=== PATIENT | male | born 1995 | race Two or more races ===

== ENCOUNTER 2018-09-16 01:55 | Inpatient (IN) | payer SELFPAY ==
--- NOTE | 2018-09-16 03:33 | ED ---
Psychiatric Complaint - HPI Summary HPI Summary: Pt is a 23 y/o male brought in by police and EMS on a 9.41 who presents to the ED c/o paranoia. He states that he had a public safety wellness check and said some things thats were misconstrued. Pt states that somebody has hacked his computer and phone and is able to see his screens and passwords. This hacker has access to his schedule and was posting threatening things on social media. As per police, they were called by the mayuri of [facility] out of concern for paranoia. Pt denies any SI/HI. He has no prior psychiatric history. - History Of Current Complaint Chief Complaint: EDMentalHealth Time Seen by Provider: 09/16/18 02:45 Hx Obtained From: Patient, EMS Onset/Duration: Gradual Onset, Still Present Timing: Constant Aggravating Factor(s): Nothing Alleviating Factor(s): Nothing Associated Signs And Symptoms: Positive: Paranoid Behavior Related History: Negative For: Prior Psychiatric Issues Has Suicidal: Denies: Thoughts Has Homicidal: Denies: Thoughts - Allergies/Home Medications Allergies/Adverse Reactions: Allergies Allergy/AdvReac Type Severity Reaction Status Date / Time No Known Allergies Allergy Verified 09/16/18 02:07 Home Medications: Home Medications NK [No Home Medications Reported] 09/16/18 [History Confirmed 09/16/18] PMH/Surg Hx/FS Hx/Imm Hx Endocrine/Hematology History: Denies: Hx Diabetes Psychiatric History: Denies: Hx Anxiety, Hx Depression Infectious Disease History: No Infectious Disease History: Denies: Traveled Outside the [place] in Last 30 Days - Family History Known Family History: Negative: Blood Disorder - Social History Occupation: Student Alcohol Use: Occasionally Alcohol Amount: pt. reports he had 2 drinks Hx Substance Use: No Substance Use Type: Reports: None Substance Use Comment - Amount & Last Used: unkown Smoking Status (MU): Unknown if Ever Smoked Review of Systems Negative: Fever Negative: Other - SI/HI All Other Systems Reviewed And Are Negative: Yes Physical Exam - Summary Physical Exam Summary: VITAL SIGNS: Reviewed. GENERAL: Patient is a well-developed and nourished MALE who is lying comfortable in the stretcher. Patient is not in any acute respiratory distress. HEAD AND FACE: No signs of trauma. No ecchymosis, hematomas or skull depressions. No sinus tenderness. EYES: PERRLA, EOMI x 2, No injected conjunctiva, no nystagmus. EARS: Hearing grossly intact. Ear canals and tympanic membranes are within normal limits. MOUTH: Oropharynx within normal limits. NECK: Supple, trachea is midline, no adenopathy, no JVD, no carotid bruit, no c- spine tenderness, neck with full ROM. CHEST: Symmetric, no tenderness at palpation LUNGS: Clear to auscultation bilaterally. No wheezing or crackles. CVS: Regular rate and rhythm, S1 and S2 present, no murmurs or gallops appreciated. ABDOMEN: Soft, non-tender. No signs of distention. No rebound no guarding, and no masses palpated. Bowel sounds are normal. EXTREMITIES: FROM in all major joints, no edema, no cyanosis or clubbing. NEURO: Alert and oriented x 3. No acute neurological deficits. Speech is normal and follows commands. SKIN: Dry and warm PSYCH: Paranoid and impulsive. Triage Information Reviewed: Yes Vital Signs On Initial Exam: Initial Vitals Temp Pulse Resp BP Pulse Ox 99.1 F 116 16 148/77 100 09/16/18 01:55 09/16/18 01:55 09/16/18 01:55 09/16/18 01:55 09/16/18 01:55 Vital Signs Reviewed: Yes Diagnostics - Vital Signs Vital Signs Temp Pulse Resp BP Pulse Ox 09/16/18 01:55 99.1 F 116 16 148/77 100 - Laboratory Result Diagrams: 09/16/18 03:41 09/16/18 03:41 Lab Statement: Any lab studies that have been ordered have been reviewed, and results considered in the medical decision making process. Re-Evaluation - Re-Evaluation First Eval Re-Evaluation Time: 04:10 Change: Unchanged Comment: Pt is medically cleared for a MHE. Course/Dx - Course Course Of Treatment: Pt is a 23 y/o male brought in by police and EMS on a 9.41 who presents to the ED c/o paranoia. Pt denies any SI/HI. A physical exam revealed paranoid and impulsive. Bloodwork and UA without abnormalities. Urine toxicology was positive for cannabinoids. He is medically cleared for a MHE. Pt will be signed out to Dr. Matt at shift change, pending MHE. Final dx of paranoia and psychosis. - Differential Dx/Clinical Impression Provider Diagnosis: Paranoia, Psychosis Discharge - Sign-Out/Discharge Documenting (check all that apply): Sign-Out Patient Signing out patient TO: Javier Matt Patient Received Moderate/Deep Sedation with Procedure: No - Discharge Plan Referrals: No Primary Care Phys,NOPCP [Primary Care Provider] - - Attestation Statements Document Initiated by Scribe: Yes Documenting Scribe: Yadi Kelly Provider For Whom Scribe is Documenting (Include Credential): Marisol Leon MD Scribe Attestation: Yadi Elliott, scribed for Marisol Leon MD on 09/16/18 at 0608. Status of Scribe Document: Ready
[2018-09-16 03:54] LABS: ABS Basophils 0 10^3/ul (0-0.2); ABS Eosinophils 0 10^3/ul (0-0.6); ABS Lymphocytes 1.4 10^3/ul (1.0-4.8); ABS Monocytes 0.6 10^3/ul (0-0.8); ABS Nucleated RBC 0 10^3/ul; Eosinophil % 0.5 %; Hematocrit 40 % (36-46); Hemoglobin 13.5 g/dL (14.0-18.0); Lymphocyte % 15.6 %; Mean Corpuscular HGB Conc 34 g/dL (31-36); Mean Corpuscular Hemoglobin 30 pg (27-31); Mean Corpuscular Volume 88 fL (80-94); Mean Platelet Volume 8.3 fL (7.4-10.4); Nucleated Red Blood Cells % 0.1; Platelet Count 200 10^3/uL (150-450); Red Blood Count 4.58 10^6 /uL (4.18-5.48); Red Cell Distribution Width 14 % (10.5-15); White Blood Count 9.1 10^3/uL (3.5-10.8)
[2018-09-16 03:56] LABS: Urine Appearance Clear; Urine Bilirubin Negative (Negative); Urine Blood Negative (Negative); Urine Color Yellow; Urine Glucose Negative (Negative); Urine Ketones Negative (Negative); Urine Nitrite Negative (Negative); Urine Protein Negative (Negative); Urine Specific Gravity 1.018 (1.010-1.030); Urine Urobilinogen Negative (Negative)
[2018-09-16 04:12] LABS: ALT 14 U/L (7-52); AST 20 U/L (13-39); Albumin 4.7 g/dL (3.2-5.2); Albumin/Globulin Ratio 1.7 (1-3); Alkaline Phosphatase 60 U/L (34-104); Anion Gap 6 mmol/L (2-11); BUN/Creatinine Ratio 21.5 (8-20); Blood Urea Nitrogen 17 mg/dL (6-24); CO2 Carbon Dioxide 27 mmol/L (22-32); Calcium 9.5 mg/dL (8.6-10.3); Chloride 104 mmol/L (101-111); EGFR African American 148.4 (>60); EGFR Non-African American 122.6 (>60); Globulin 2.8 g/dL (2-4); Glucose 97 mg/dL (70-100); Potassium 3.9 mmol/L (3.5-5.0); Sodium 137 mmol/L (135-145); Total Protein 7.5 g/dL (6.4-8.9)
[2018-09-16 04:15] LABS: Barbiturates Urine Screen None Detected (None Detect); Benzodiazepine Urine Screen None Detected (None Detect); Urine Cannabinoids Screen Presumptive Positive (None Detect)
[2018-09-16 04:29] LABS: Acetaminophen < 15 mcg/mL; Alcohol < 10 mg/dL (<10); Salicylate < 2.50 mg/dL (<30)
[2018-09-16 04:45] LABS: TSH (Thyroid Stimulating Horm) 1.35 mcIU/mL (0.34-5.60)
--- NOTE | 2018-09-16 07:13 | ED ---
Progress - Progress Note Progress Note: This patient was signed out to Dr. Matt from Dr. Leon upon provider shift change pending mental health evaluation. Re-Evaluation - Re-Evaluation First Eval Re-Evaluation Time: 07:39 Change: Improved Comment: Patient appeared to be in a good mood, said he was having an amazing day. Course/Dx - Course Course Of Treatment: Pt is a 23 y/o male brought in by police and EMS on a 9.41 who presents to the ED c/o paranoia. Pt denies any SI/HI. A physical exam revealed paranoid and impulsive. Bloodwork and UA without abnormalities. Urine toxicology was positive for cannabinoids. He is medically cleared for a MHE. Pt will be signed out to Dr. Matt at shift change, pending MHE. Patint evaluated by Dr. Millan and recommends discharge home. Final dx of paranoia and psychosis. - Diagnoses Provider Diagnoses: Unspecified psychosis - Provider Notifications Discussed Care Of Patient With: Nimisha Millan Time Discussed With Above Provider: 11:03 Instructed by Provider To: Other - Nimisha Millan reccomends admitting the patient to [facility] pyschiatric facility with dx unspecified psychosis. Discharge - Sign-Out/Discharge Documenting (check all that apply): Patient Departure - admit to [facility] psychiatric facility, Receiving Sign-Out Receiving patient FROM: Marisol Leon Patient Received Moderate/Deep Sedation with Procedure: No - Discharge Plan Condition: Stable Disposition: PSYCHIATRIC FACILITY-[facility] Referrals: [facility] [Outside] - Billing Disposition and Condition Condition: STABLE Disposition: Psychiatric Facility [facility] - Attestation Statements Document Initiated by Scribe: Yes Documenting Scribe: Aracelis Noriega Provider For Whom Amirah is Documenting (Include Credential): Javier Matt MD Scribe Attestation: Aracelis Elliott, lilianaibed for Javier Matt MD on 09/16/18 at 1204. Scribe Documentation Reviewed: Yes Provider Attestation: The documentation as recorded by the scribe, Aracelis Noriega accurately reflects the service I personally performed and the decisions made by me, Javier Matt MD Status of Scribe Document: Viewed
[2018-09-16] MEDS ORDERED: Acetaminophen TAB* 325 MG PO PRN (10:37)
[2018-09-16] MEDS ORDERED: Al Hydrox/Mg Hydrox/Simet LIQ* 30 ML UDC PO PRN (10:37)
[2018-09-16] MEDS: Vitamin THERAPEUTIC TAB PO SCH (22:00)
[2018-09-16] MEDS: ARIPiprazole TAB* 5 MG PO SCH (22:00)
--- NOTE | 2018-09-17 00:54 | HP ---
HISTORY AND PHYSICAL: DATE OF ADMISSION: 09/16/18 PROVIDER: Em Worthington NP, in Psychiatry. SUPERVISING PHYSICIAN: Gerson Higgins MD* (dictated by Em Worthington NP). JUSTIFICATION FOR ADMISSION: The patient is in need of 24-hour supervision and care secondary to disorganization and paranoia. CHIEF COMPLAINT: "I don't need to be here." HISTORY OF PRESENT ILLNESS: The patient is a 23-year-old, single, male with a history of no mental illness, who arrives, brought in by law enforcement and is here on 9.45 status following airing his beliefs that people are hacking his phone and his computer. Wilfred is an extremely pleasant and charming person to talk to. He has a ready smile and gestures in a seemingly joyful manner. Upon further conversation, it appears that Wilfred is concerned that people have hacked his Twitter, [employer], and Instagram, and removed pictures from it without his permission or knowledge. In addition, he has taken theses concerns including that his room in his dorm has been broken into to the mayuri and to the campus police multiple times. He also stopped going to class for a week and his professors began worrying that something was wrong as he had been behaving strangely in class beforehand. Wilfred is not doing well in school. He is not passing several of his courses and he will not be permitted to graduate in October. He does not seem to be bothered by this and there is an arrangement that he can go back home and do some work, either on his own or at a community college, and then graduate later from [employer]. At this point, speaking with him without any collateral, he appears to be a happy, healthy young man, who is having some odd spiritual beliefs and is perhaps hypervigilant about his electronics. PAST PSYCHIATRIC HISTORY: He has never had psychiatric treatment or symptoms or hospitalizations. He has gone to [employer] at [employer] as advised by his professor. He states he has never had suicidal or homicidal ideations. He has never been violent. He does not have access to weapons. He denies having a history of trauma. He denies having TBIs. He denies having taken any psychiatric medications either now or in the past. PAST MEDICAL HISTORY: Wilfred states he is a very healthy person. He takes multivitamin and several supplements. The only problem he has had is a wisdom tooth that was extracted surgically. FAMILY HISTORY: Wilfred states that he has a happy family that no one has mental illness known to him. SUBSTANCE ABUSE: He does use marijuana, although he states he only uses it once every other week. He also uses alcohol, but only every other week as well. His cannabinoid screen did log turner positive. SOCIAL HISTORY: He is in school at [employer]. He is 23, he is a senior, but he will not be able to graduate. He is not partnered. He identifies as being a homosexual. He does not have roommate. He lives in a single room. He does not have children. He is not employed at this time. He is only a student. He is not in the . He does not have any legal problems. REVIEW OF SYSTEMS: The patient reports feeling alert. He denies shortness of breath, heat or cold intolerance, chest pain or abdominal pain. He denies neurological symptoms. He denies fevers and changes in weight. PHYSICAL EXAMINATION GENERAL: The patient is a well developed and nourished male, who is lying comfortably in bed. VITAL SIGNS: On 09/16/18 at 12:25, temperature was 97.8, pulse 91, respirations 16, O2 sat 100%, blood pressure 124/67. HEENT: Head and Face: No signs of trauma. No ecchymosis, hematomas, or skull depressions. No sinus tenderness. Eyes: PERRLA. EOMI x2. No injected conjunctiva. No nystagmus. Ears: Hearing is grossly intact. Ear canals and tympanic membranes are within normal limits. Mouth: Oropharynx is within normal limits. NECK: Supple. Trachea is midline. No adenopathy. No JVD. No carotid bruits. No C-spine tenderness. Neck is with full range of motion. CHEST: Symmetric. No tenderness or palpations. LUNGS: Clear to auscultation bilaterally. No wheezing or crackles. CVS: Regular rate and rhythm. S1 and S2 present. No murmurs or gallops appreciated. ABDOMEN: Soft, nontender. No signs of distention. No rebound or guarding, and no masses palpated. Bowel sounds are normal. EXTREMITIES: Full range of motion in all major joints. No edema. No cyanosis or clubbing. NEUROLOGIC: Alert and oriented x4. No acute neurological deficits. Speech is normal and follows commands. SKIN: Dry and warm. PSYCHIATRIC: He is paranoid and impulsive. LABORATORY DATA: Most are within normal limits. Exceptions include hemoglobin , which is low at 13.5. BUN and creatinine ratio is high at 21.5. Urine screen is negative. Toxicology screen is positive for cannabinoids. MENTAL STATUS EXAM: Wilfred is a slim, average height, man with dark hair, who speaks somewhat loudly and rapidly, but it is a pleasant and excited tone of voice. He is calm and cooperative. His speech is normal rate and tone. He is euthymic. He has a full range of affect. His thought processes on the surface appear to be sequential and goal directed, yet there is a concern that he reads into circumstantial information and creates a more significant issue out of it. For example, finding his room disheveled or missing a photograph. Delusions appear to be present in the form of persecutory and possibly obsessional varieties. He is not homicidal or suicidal. He is not having hallucinations. His insight is poor. His judgment is fair to good. He is alert and oriented x3. DIAGNOSIS: Psychotic disorder, NOS. IMPRESSION: Wilfred is a healthy, 23-year-old male, who comes to the hospital due to concerns from [facility] about Wilfred's increasingly odd behavior, isolation, and paranoia. PLAN/RECOMMENDATIONS: The patient is admitted to the adult behavioral health unit and placed on q.15 minutes checks for his own safety. He is encouraged to participate in the supportive milieu, individual, and group therapies. Estimated length of stay is 3 to 5 days. We may obtain an MMPI for diagnostic clarification. We will titrate medications to efficacy if he will take them and we will monitor for mood and thought content. Discharge planning may include family involvement if he allows us and we will include outpatient providers and the [facility]. EM WORTHINGTON, ADIS [id number]/[facility] #: [id number] JUAN
[2018-09-17] MEDS: Vitamin THERAPEUTIC TAB PO SCH (08:24)
[2018-09-17] MEDS: ARIPiprazole TAB* 5 MG PO SCH (23:00)
[2018-09-18] MEDS: Vitamin THERAPEUTIC TAB PO SCH (12:41)
--- NOTE | 2018-09-18 18:58 | PN ---
Subjective - Subjective Date of Service: 09/18/18 Service Type: 20005 Hosp care 15 min low complexity Subjective: Love appears to be very happy, talketive but maintais his claim of being hacked by his classmates. However he is unwilling to accept that he has mental illness and needs treatments. Refusing to take meds. Says he sometimes hers noices but not voices. Very evasive and heidi to avoid answering questions. Objective - General Observations Appearance: Well Groomed Appears Stated Age: Yes Stature: WNL Posture: WNL Eye Contact: Average Behavior/Activity: Accelerated - Interaction Observations Attitude Towards Examiner: Cooperative, Evasive Affect: Full, Bright Speech Pattern/Tone: Excessive, Pressured Thought Process: Coherent, Over Inclusive Thought Content: Paranoid Hallucination Type: Auditory Delusion Type: Denies - Cognitive Function Orientation: A&O x 4 Level of Consciousness: Alert Cognition: WNL Estimated Intelligence: Normal Insight: Mostly Blames Others for Problems Judgment Within Normal Limits: No Ability to Make Reasonable Decisions: Moderately Impaired - Medication Compliance Cooperative with Inpatient Medication Regimen: No - Group Participation Participates in Group Activities: No Assessment - Assessment Merits Inpatient Hospitalization: For Immediate Safety, For Stabilization, For Ongoing Evaluation Plan - Plan Treatment Plan: Name: LOVE DOHERTY Birthdate: 1995 [id number] Continued Medication Management: Start Medication Medications: Current Medications Acetaminophen (Tylenol Tab*) 650 mg PO Q4H PRN PRN Reason: for pain; or Temp >101 F Al Hydrox/Mg Hydrox/Simethicone (Maalox Plus*) 30 ml PO Q4H PRN PRN Reason: INDIGESTION Aripiprazole (Abilify Tab*) 5 mg PO BEDTIME [facility] Last Admin: 09/17/18 23:00 Dose: Not Given Multivitamins (Theragran Tab*) 1 tab PO DAILY [facility] Last Admin: 09/18/18 12:41 Dose: 1 tab - Discharge Plan Discharge Plan: Outpatient Follow Up Outpatient Program: [facility]
[2018-09-18] MEDS: ARIPiprazole TAB* 5 MG PO SCH (21:39)
[2018-09-19 08:37] VITALS: BP 113/70
[2018-09-19] MEDS: Vitamin THERAPEUTIC TAB PO SCH (08:57)
--- NOTE | 2018-09-20 11:47 | DS ---
DISCHARGE SUMMARY: DATE OF ADMISSION: 09/16/18 DATE OF DISCHARGE: 09/19/18 PROVIDER: Em Worthington NP, in Psychiatry. SUPERVISING PHYSICIAN: Dr. Terrell Hawkins* (dictated by Em Worthington NP). DIAGNOSIS: Psychosis, NOS. CONDITION AT THE TIME OF DISCHARGE: Improved. Psychiatrically cleared, stable. Wilfred participated in groups and was social with peers. His family is agreeable to discharge stating that he is at his baseline. He has done well here psychiatrically. He declined to start any medications. He will be attending [facility]. MENTAL STATUS EXAMINATION: At the time of discharge, Rony is calm, cooperative , and makes good eye contact. He is alert and oriented x4. His grooming is good. His speech pace is slightly pressured. His thought processes are logical. He is mildly psychotic and delusional. He denies AH, VH, SI, and HI. His insight is fair. His judgment is fair. He is willing to follow up and urged to see a therapist. DISCHARGE INSTRUCTIONS TO THE PATIENT: A. Medications: He is recommended to start Abilify 5 mg and that was prescribed to him for outpatient use, but he has declined to start it in the hospital. B. Diet is regular. C. Activities as tolerated. He is a nonsmoker. There are no studies pending at the time of discharge. D. Followup care: He has an appointment on 09/26/18 at 11 a.m. at [facility]. He has an appointment on 09/23/18 at 3 p.m. with the [facility] case management rn. Rony is being discharged to his family and back to [facility]. E. Substance abuse followup is not indicated. HOSPITAL COURSE: Part A. Chief Complaint: "I don't need to be here." The patient is a 23-year-old, single, male with history of no mental illness, who arrives, brought in by law enforcement and is here on a 9.45 status following airing his beliefs that people are hacking his phone and his computer. Wilfred is an extremely pleasant and charming person to talk to. He has a ready smile and gestures in a seemingly joyful manner. Upon further conversation, it appears that Wilfred is concerned that people have hacked his Twitter, [employer], and [employer] accounts, and removed pictures from it without his permission or knowledge. In addition, he has taken theses concerns including that his room in his dorm has been broken into to the mayuri and to the campus police multiple times. He also stopped going to class for a week and his professors began worrying that something was wrong as he had been behaving strangely in class beforehand. Rony is not doing well in school. He is not passing several of his courses and he will not be permitted to graduate in October. He does not seem to be bothered by this and there is an arrangement that he can go back home and do some work, either on his own or at a community college, and then graduate later from [facility]. At this point, he appears to be a happy, healthy young man , who is having some odd spiritual beliefs and is perhaps hypervigilant about his electronics. Part B: Psychiatric treatment rendered. Rony was admitted to the adult behavioral unit and placed on q.15 minute checks for safety. Rony did well on the unit. He went to groups. He interacted with peers well and stated he appreciated the "reset" that he got by being here on the unit. He did not want to start any medications, although he understood the reasons behind them. He simply did not agree with the reasons as he does not have insight into the fact that he is mildly psychotic at this point. Kamlesh Deleon LCSW, met with the family of Rony. They stated he was at his baseline. We encouraged them to impress upon him the importance of going to appropriate authorities: rather than the police instead go to resident's life to discuss people breaking into his room and other authorities who would not necessarily call and send a welfare check on him. No consults were entered for Rony. He was happy upon arrival, although he did not want to be here. He was able to channel his frustration into having time to himself and being able to be free from harassment from other people whether real or perceived. He will be attending [employer]. EM WORTHINGTON, ADIS [id number]/[facility] #: [id number] JUAN
--- NOTE | 2018-09-20 19:19 | CONS ---
PSYCHOLOGICAL REPORT: DATE OF CONSULT: 09/19/18 PROCEDURE CODE: [id number]. REASON FOR REFERRAL: Rony was referred for personality testing secondary to concerns regarding psychosis characterized by paranoia with other concerns regarding possible bipolar or manic episode. TEST ADMINISTERED: Rony completed the [place] Multiphasic Personality Inventory- 2 (MMPI-2), and was given feedback in individual conversation. He was also seen in the context of cognitive behavioral group psychotherapy led by this functional tester typewriters on one occasion. RELEVANT HISTORY: Rony is a 23-year-old single male with no prior mental health involvement, who is brought here by law enforcement secondary to concerns that he is experiencing paranoid mentation. He describes concerns that people had been hacking into his phone and his computer on campus. He also was under the impression that people were hacking into his social accounts such as [employer], [employer], and [employer] [facility], and had in fact removed pictures without his knowledge. He had contacted campus police multiple times and had stopped attending classes in recent weeks as well. He subsequently has been struggling academically and although, he is scheduled to graduate, he is not going to complete his requirements on time. He does not seem to be concerned about this and has a plan to complete requirements afterwards. Rony does speak excitedly about future plans and discussed trying to create an online presence for himself in the past year and he spoke very excitedly and passionately about having had contact with a medium from [place]. He feels this meeting has been very encouraging to him in terms of pursuing his own career aspirations. He was unconcerned when questioned about potential for exploitation. Further treatment should explore this option either in the context of possible psychiatric symptomatology or in the aforementioned concerns that now he may be being exploited by someone who is engaged in some predatory behaviors. While here, Rony presents with good affect and is spontaneous in speech. He participated positively in group psychotherapy and also was spontaneous in conversation and individual contact. He denies having experienced any suicidal rumination and emphasized that he is safe to be discharge. 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 Discussion briefly addressed romantic attachment and/or disappointments with him being unconcerned generally speaking, but feels as though friends have disappointed him. TEST RESULTS: Rony provides a rather curious profile on this administration of the MMPI-2 as he has a significant elevation on the lie scale on the validity configuration, attaining T-score of 77 here. Persons who elevate this are either felt to be "faking-bad" or who may adhere to higher than normal moral and behavioral expectations than what is expected. The former impresses the case here, as he provides subclinical scoring except in the context of paranoia scale and schizophrenia scale. Concerns with Rony were discussed in the context of paranoia. He responded in a rather dismissive fashion, denying experiencing any trey paranoid mentation and explained the worrisome concerns regarding suspicions about behavior of others in his social group. He feels that his anger in the context of interpersonal relationships relates to some disappointments and his expectations of others, but he denies experiencing any delusional content currently. IMPRESSION AND RECOMMENDATIONS: It is hoped that Rony will continue to engage in recommended outpatient services with ongoing concerns regarding possible paranoid mentation as well as possible bipolar condition beginning to emerge. Currently, his symptoms seem to remit quickly with he in a structure and routine and he endorsed having had good sleep in the past 2 nights. Discussion addressed concerns regarding impaired insight and judgment when people are having difficulty understanding reality and how this can lead to reckless behavior and bad outcomes. Rony was receptive to this conversation, but was adamant in terms of his safety for discharge. Concerns are that his insight is poor in regards to what symptoms are, but that he does not impress as danger to self or others presently. Ongoing treatment should continue to assess for diagnostic purposes and for safety. [id number]/[facility] #: [id number] JUAN
== END 2018-09-19 12:29 | disposition home or self-care (01) | DRG 885 ==
LOC: ED 01:55 → BSU 10:37 → ED 12:07
PROVIDERS: ADMIT Nurse Practitioner Psychiatric/Mental Health; ATTEND Psychiatry & Neurology Psychiatry
DX: F29 Unspecified psychosis not due to a substance or known physiological condition (principal); F22 Delusional disorders; Z72.89 Other problems related to lifestyle
CPT/HCPCS: 36415; 80053; 80307; 80320; 80329; 81003; 84443; 85025; 99222; 99231; 99238; 99284; A9270-GY; G0480